=== PATIENT | male | born 1995 | race Caucasian/White ===

== ENCOUNTER 2016-05-08 15:31 | Emergency (ER) | payer OTHER ==
[2016-05-08] MEDS ORDERED: DICYCLOMINE 20MG/2ML VIAL IM ONE (17:13)
[2016-05-08] MEDS ORDERED: ONDANSETRON ODT 4 MG TAB ONE (17:13)
== END 2016-05-08 18:49 | disposition home or self-care (01) ==
LOC: ER 15:31
DX: K52.9 Noninfective gastroenteritis and colitis, unspecified (principal)
CPT/HCPCS: 36415; 80053; 81003; 83690; 85025; 96372